=== PATIENT | male | born 2000 | race Caucasian/White ===

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

== ENCOUNTER → 2024-01-08 14:55 | Outpatient (CLI) | payer OTHER, MEDICAID, SELFPAY ==
[2024-01-08 22:19] LABS: Urine N gonorrhoeae NOT DETECTED
[2024-01-08 22:26] LABS: Urine Chlamydia NOT DETECTED
== END ==
PROVIDERS: PCP Family Medicine; Visit Provider Physician Assistant Medical
DX: Z11.3 Encounter for screening for infections with a predominantly sexual mode of transmission (principal)
CPT/HCPCS: 87491; 87591

== ENCOUNTER 2024-01-10 15:43 | Emergency (ER) | payer OTHER, MEDICAID, SELFPAY ==
[2024-01-10 15:52] VITALS: BP 148/69; PULSE 75; RESP 16; TEMP 36.9; O2SAT 98; BMI 25.1
[2024-01-10 20:00] VITALS: BP 135/78; PULSE 75; RESP 19; O2SAT 98
--- NOTE | 2024-01-10 20:48 | ED_ITS ---
HPI - Recheck/Abnormal Lab/Rx General Chief Complaint: Recheck/Abnormal Lab/Rx Stated Complaint: std check Time Seen by Provider: 01/10/24 16:57 Source: patient Mode of arrival: Ambulatory Limitations: no limitations History of Present Illness HPI narrative: Male presents complaint. He was treated sounds like was acyclovir and it did eventually go away. He states it has not painful but slightly irritated there some red spots he states it is more notable when he is erect. He states no testicular involvement. No other skin changes. He states no fevers chills cold cough or congestion no abdominal pain, no nausea or vomiting no issues with bowel movements. No dysuria urgency frequency. No discharge. Patient notes he is sexually active. Does not have wheezes protection. Does have concern STDs. Did have testing [place] in the last 2 days was told that negative. He states suspicion for HSV is much lower but is open to testing. He does have some concern for syphilis. He has not had this tested. We discussed HIV and hepatitis testing which he has not had recently and he is going to pursue he has not appointment next week for this. Patient states no other topical creams or changes. He notes he has a little bit of rash in his lower back as well. He does have a history of cystic acne and is on doxycycline. No known drug allergies otherwise. Related Data Previous Rx's Medication Instructions Recorded benzoyl peroxide 10 % topical 1 applic topical DAILY #28 grams 06/28/23 cream (Acne Treatment (benzoyl peroxide)) doxycycline hyclate 50 mg capsule 50 mg PO BID #60 caps 06/28/23 Allergies Allergy/AdvReac Type Severity Reaction Status Date / Time No Known Drug Allergies Allergy Verified 01/08/24 14:47 Review of Systems Review of Systems ROS Unobtainable: All systems reviewed & are unremarkable except as noted in HPI and below Patient History Medical History History of bacterial meningitis Patient denies significant medical history Surgical History S/P orchiopexy Social History Smoking Status: Never smoker Smoking Status: Never smoker alcohol intake frequency: 0-2 drinks per day Substance Use Type: does not use Exam Narrative Exam Narrative: GENERAL: Alert and oriented x three, male in mild distress HEENT: Head normocephalic, atraumatic, EOMI, pupils reactive, face symmetric, moist mucous membranes NECK: Supple, full range of motion CARDIOVASCULAR: Regular rate and rhythm without murmurs, rubs or gallops. RESPIRATORY: Breath sounds equal bilaterally, no wheezes rales or rhonchi. ABDOMEN: Soft, nontender. Normoactive bowel sounds all 4 quadrants. No guarding or rebound, rigidity, no mass : No CVA tenderness. Male: normal external examination for very light small dots that are very difficult to discern, patient has 1 small almost fissure on the head of the penis, otherwise no other rash or skin changes no vesicles. No papules, no lymphadenopathy, no penile discharge or lesions, testicles non- tender, cremasteric reflex intact, no inguinal hernias noted. EXTREMITIES: Normal range of motion, no clubbing or edema. Neurovascularly intact NEUROLOGICAL: Cranial nerves II through XII grossly intact. Moving all extremities SKIN: Warm, dry, no petechiae, patient has multiple small erythematous papules consistent with cystic acne on his back. There is some small excoriated areas on his lower back but nothing that I can easily discern inked that appears similar to his penis Initial Vital Signs Initial Vital Signs: Vital Signs Temperature 98.4 F 01/10/24 15:52 Pulse Rate 75 01/10/24 15:52 Respiratory Rate 16 01/10/24 15:52 Blood Pressure 148/69 H 01/10/24 15:52 Pulse Oximetry 98 01/10/24 15:52 Oxygen Delivery Method Room Air 01/10/24 15:52 Course Orders Ordered: ED Orders 01/10/24 21:00 HSV 1/2 DNA PCR SWAB or BLOOD Stat 01/10/24 21:03 RPR W Reflex to Titer Stat Vital Signs Vital signs: Vital Signs - 8 hr 01/10/24 15:52 01/10/24 20:00 Temperature 98.4 F Pulse Rate 75 75 Respiratory Rate 16 19 Blood Pressure 148/69 H 135/78 Pulse Oximetry 98 98 Oxygen Delivery Method Room Air Room Air MDM - Recheck/Abnormal Lab/Rx MDM Narrative Medical decision making narrative: 23-year-old male who presents for STI check. Patient does have a very faint rash on the head of his penis. Discussed HSV testing was not painful but is irritated. He defers treatment at this time would like to do blood testing although we discussed that is would not slowly confirm an acute outbreak. There is no open lesions for culture. Patient was also concern for syphilis will include this on his blood work. He has follow up in the next week and we will follow up for HIV and hepatitis-C testing as well. He did have gonorrhea and chlamydia testing in the last 2 days and rash does not appear consistent this. Discharge Plan Departure Patient Disposition: Home Clinical Impression: Penile rash Activity Restrictions/Additional Instructions: Follow up for recheck in additional testing. I would recommend that you follow up to have HIV and hepatitis testing as well. Your labs today are currently pending I will probably take about a week to arrange salt. If they are negative we do not call to contact you but if they are positive we would call. You can also check the patient portal to check for results as well. Please return if you have any new or worsening changes. Prescriptions: No Action Acne Treatment (benzoyl perox) 10 % cream 1 applic topical DAILY Qty: 28 5RF doxycycline hyclate 50 mg capsule 50 mg PO BID Qty: 60 2RF Referrals: Ramez Miller MD [Primary Care Provider] - Stand Alone Forms: Patient Portal/API
[2024-01-10 21:19] VITALS: BP 135/78; PULSE 87; RESP 15; TEMP 36.9; O2SAT 99
[2024-01-13 08:08] LABS: RPR Screen Non Reactive (Non Reactive)
[2024-01-15 13:14] LABS: HSV 1 DNA Negative (Negative); HSV 2 DNA Negative (Negative)
== END 2024-01-10 21:21 | disposition home or self-care (01) ==
PROVIDERS: Emergency Provider Emergency Medicine; PCP Family Medicine
DX: R21 Rash and other nonspecific skin eruption (principal); Z11.3 Encounter for screening for infections with a predominantly sexual mode of transmission
CPT/HCPCS: 86592; 87529; 99281; 99282

== ENCOUNTER → 2024-01-15 11:22 | Outpatient (CLI) | payer OTHER, MEDICAID, SELFPAY ==
[2024-01-17 05:14] LABS: RPR Screen Non Reactive (Non Reactive)
[2024-01-17 16:23] LABS: HIV 1 & 2 Ab/Ag 4th Gen Combo NEGATIVE (NEGATIVE); Hep C Virus Ab w/Reflex Quant NEGATIVE s/c (NEGATIVE)
== END ==
PROVIDERS: PCP Family Medicine; Visit Provider Physician Assistant Medical
DX: Z11.3 Encounter for screening for infections with a predominantly sexual mode of transmission (principal)
CPT/HCPCS: 86592; 86803; 87389